=== PATIENT | male | born 1960 | race Caucasian/White ===

== ENCOUNTER 2017-08-22 04:57 | Emergency (ER) | payer MEDICARE, MEDICAID ==
[~2017-08-22] VITALS: Ht 5954.8 cm; Wt 117.2 kg
[~2017-08-22 04:57] MED LIST: ALBU18HF2 IH; AMIT-189 PO; CLON-527 PO; PALI156D IM; PRED20TA PO
[2017-08-22 05:20] VITALS: BP 123/83
== END 2017-08-22 05:23 | disposition home or self-care (01) ==
LOC: ER 04:58
DX: R51 Headache (principal); J44.9 Chronic obstructive pulmonary disease, unspecified; F12.10 Cannabis abuse, uncomplicated; F15.10 Other stimulant abuse, uncomplicated; Z87.891 Personal history of nicotine dependence; Z79.899 Other long term (current) drug therapy; Z88.0 Allergy status to penicillin
CPT/HCPCS: 99281

== ENCOUNTER 2018-12-08 14:37 | Inpatient (IN) | payer MEDICARE, MEDICAID ==
--- NOTE | 2018-12-07 21:40 | NUR ---
Received report from Recovery nurse Cassidy ANGEL. Will assume patient care.
--- NOTE | 2018-12-07 22:00 | NUR ---
Patient arrived to floor stating pain 10/10. Dilaudid cadd pump started, an intial bolus 0.2mg given to patient. Patient noted to have a RUBI drainage to RLQ with SS drainage. Patient has 2 abd lap site and a small gauze dressing to umbilicus.Umbilicus dressing is does have some bloody drainage noted to it. Dressing just changed by Recovery nurse prior to arriving on floor. VSS will continue with care.
[~2018-12-08] VITALS: Ht 180.3 cm; Wt 125.0 kg
[2018-12-08] VITALS (9 sets, daily range): BP systolic 110–144; BP diastolic 62–89
[2018-12-08 15:28] LABS: BASOPHILS # (AUTO) 0.1 X10'3 (0-0.2); BASOPHILS % (AUTO) 0.4 % (0-1); EOSINOPHILS # (AUTO) 0.2 X10'3 (0-0.9); EOSINOPHILS % (AUTO) 1.5 % (0-6); HEMATOCRIT 40.5 % (42.0-52.0); LYMPHOCYTES # (AUTO) 2.1 X10'3 (1.1-4.8); LYMPHOCYTES % (AUTO) 14.7 % (21-51); MEAN CORPUSCULAR HEMOGLOBIN 30.3 PG (27.0-31.0); MEAN CORPUSCULAR HGB CONC 34.5 g/dL (33.0-36.5); MEAN CORPUSCULAR VOLUME 87.9 FL (78-98); MEAN PLATELET VOLUME 7.4 FL (7.4-10.4); MONOCYTES # (AUTO) 0.8 X10'3 (0-0.9); MONOCYTES % (AUTO) 5.6 % (2-12); NEUTROPHILS # (AUTO) 10.9 X10'3 (1.8-7.7); NEUTROPHILS % (AUTO) 77.8 % (42-75); PLATELET COUNT 286 X10'3 (140-440); RED BLOOD COUNT 4.61 X10'6 (4.70-6.10); RED CELL DISTRIBUTION WIDTH 14.2 % (11.5-14.5)
[2018-12-08 15:42] LABS: ALANINE AMINOTRANSFERASE 39 U/L (12-78); ALBUMIN 3.9 G/DL (3.4-5.0); ALBUMIN/GLOBULIN RATIO 1.1 (1.1-1.5); ALKALINE PHOSPHATASE 90 IU/L (46-116); ANION GAP 13 (8-16); ASPARTATE AMINO TRANSFERASE 17 U/L (10-37); BILIRUBIN,TOTAL 0.4 MG/DL (0.1-1.0); BLOOD UREA NITROGEN 23 MG/DL (7-18); CHLORIDE 101 MMOL/L (99-107); CREATININE 1.44 MG/DL (0.60-1.10); GLUCOSE 132 MG/DL (70-104); SODIUM 139 MMOL/L (135-145); TOTAL CARBON DIOXIDE 25.3 MMOL/L (24-32); TOTAL PROTEIN 7.3 G/DL (6.4-8.2); eGFR 50 ML/MIN
[2018-12-08 15:47] LABS: POTASSIUM 2.9 MMOL/L (3.5-5.1)
[2018-12-08] MEDS ORDERED: ketorolac tromethamine 15mg/ml inj. IV ONE (16:15)
[2018-12-08 16:53] LABS: LIPASE 120 U/L (73-393)
[2018-12-08] MEDS ORDERED: lurasidone 60mg tablet PO SCH (17:00)
[2018-12-08] MEDS ORDERED: CefTRIAXone/D5W-Rocephin 1gm 50 ML IV ONE (17:35)
[2018-12-08] MEDS ORDERED: ringers solution, lacted 1,000 ML IV ONE (17:40)
[2018-12-08] MEDS ORDERED: potassium Cl 10 mEq/100mL bag IV ONE (17:40)
[2018-12-08] MEDS ORDERED: magnesium 2GM in 50ml NS 50 ML IV ONE (17:40)
[2018-12-08] MEDS ORDERED: potassium 10mEq/100ml NS w/LIDOcaine (10mg/bag) IV ONE (17:45)
--- NOTE | 2018-12-08 17:49 | NUR ---
PT MOVED FROM RHODES 10 TO BED 15
[2018-12-08] MEDS ORDERED: TERA5CAP4 PO (17:55)
[2018-12-08] MEDS ORDERED: morphine 10mg/ml inj. IV ONE (17:55)
[2018-12-08] MEDS ORDERED: BUPR300T86 PO (17:55)
[2018-12-08] MEDS ORDERED: LOSA50TA64 PO (17:55)
[2018-12-08] MEDS ORDERED: ondansetron/PF 4mg/2ml inj IV ONE (17:55)
[2018-12-08] MEDS ORDERED: CHLO25TA10 PO (17:55)
[2018-12-08] MEDS ORDERED: FLUT1AER PO (17:55)
[2018-12-08] MEDS ORDERED: DOCU-267 PO (17:55)
[2018-12-08] MEDS ORDERED: ATOR20TA66 PO (17:55)
[2018-12-08] MEDS ORDERED: LURA120T PO (17:55)
[2018-12-08] MEDS ORDERED: LEVO100T9 PO (17:55)
[2018-12-08] MEDS ORDERED: NALT50TA PO (17:55)
[2018-12-08] MEDS ORDERED: AMIT75TA48 PO (17:55)
[2018-12-08] MEDS ORDERED: magnesium Cl slow-release 64mg tablet PO PRN (18:00)
[2018-12-08] MEDS ORDERED: potassium Cl 40MEQ/NS 500ml 500 ML IV PRN ×2 (18:00)
[2018-12-08] MEDS ORDERED: acetaminophen 325mg tablet PO PRN ×2 (18:00)
[2018-12-08] MEDS ORDERED: ondansetron/PF 4mg/2ml inj IV PRN ×2 (18:00→19:10)
[2018-12-08] MEDS ORDERED: mag hydrox/Alum hydrox/simeth 30ml oral suspension PO PRN (18:00)
[2018-12-08] MEDS ORDERED: HYDROmorphone inj. 0.5 MG/0.5 ML DISP.SYRIN IV PRN (18:00)
[2018-12-08] MEDS ORDERED: potassium Cl 20 mEq SR tablet PO PRN (18:00)
[2018-12-08] MEDS ORDERED: magnesium 2GM in 50ml NS 50 ML IV PRN (18:00)
[2018-12-08] MEDS ORDERED: HYDROcodone/acetaminophen 5mg/325mg tablet PO PRN (18:00)
[2018-12-08] MEDS ORDERED: magnesium 4gm in 100ml NS 100 ML IV PRN (18:00)
[2018-12-08] MEDS ORDERED: HYDROcodone/acetaminophen 10/325mg tab PO PRN (18:00)
[2018-12-08] MEDS: K and/or MAG REPLACEMENT MC SCH (18:00)
[2018-12-08] MEDS ORDERED: magnesium hydroxide 30ml (MOM) UD suspension PO PRN (18:00)
[2018-12-08] MEDS ORDERED: HYDROmorphone 1 mg/ml syringe IV PRN (18:00)
[2018-12-08] MEDS ORDERED: LIDOcaine 1% 30ml preserv. free vial ONE (18:25)
[2018-12-08] MEDS ORDERED: BUPIVAcaine/PF 2.5 mg/ml (0.25%) 30ml vial ONE (18:26)
[2018-12-08] MEDS ORDERED: ringers solution, lacted 1,000 ML IV SCH (19:06)
[2018-12-08] MEDS ORDERED: morphine 4 MG/ML inj SYRINge IV PRN ×2 (19:10)
[2018-12-08] MEDS ORDERED: meperidine/PF 25mg/ml syringe IV PRN ×3 (19:10)
[2018-12-08] MEDS ORDERED: proCHLORperazine 10 MG/2 ml inj IV PRN (19:10)
[2018-12-08] MEDS ORDERED: sevoflurane 250ml liquid IH ONE (19:13)
[2018-12-08] MEDS ORDERED: midazolam 2 mg/2 ml injection ONE (19:16)
[2018-12-08] MEDS ORDERED: propofol inj 20 ML IV ONE (19:16)
[2018-12-08] MEDS ORDERED: fentaNYL /PF 50mcg/ml 5ml ampule ONE (19:16)
[2018-12-08] MEDS ORDERED: rocuronium 10mg/ml inj IV ONE (19:16)
[2018-12-08] MEDS ORDERED: ceFAZolin 1000mg inj ONE ×3 (19:36)
[2018-12-08] MEDS ORDERED: neostigmine methylsulfate 1 MG/ML 10ml vial ONE (20:28)
[2018-12-08] MEDS ORDERED: glycopyrrolate 0.2mg/ml inj ONE (20:28)
[2018-12-08] MEDS ORDERED: CADD PCA waste documentation MC PRN (20:50)
[2018-12-08] MEDS ORDERED: naloxone 0.4 mg/ml inj IV PRN (20:50)
--- NOTE | 2018-12-08 20:50 | NUR ---
Received from OR via MEDICAL BED, accompanied by Anesthesiologist DR. WALLS and report given by Anesthesiolgist. PT AWAKE AND ALERT, O2 VIA MASK AT [address] DRESSING TO UMB AREA SOAKED, REPLACED WITH GAUZE AND TAPE, CAITLIN DUNNE. SOFÍA WITH GOOD CSM. PULSE AND SERVICE AGENT WNL T/O. RUBI DRAIN NOTED TO RT ABD AREA
[2018-12-08] MEDS: HYDROmorphone/NS 1 mg/ml CADD 50 ML IV SCH ×3 (21:00→23:00)
[2018-12-08] MEDS ORDERED: temazepam 15mg capsule PO PRN (21:00)
--- NOTE | 2018-12-08 21:30 | NUR ---
Report called to receiving nurse FELA ANGEL. Transferred via MEDICAL BED TO ROOM 354C Belongings LEFT AT BEDSIDE. Special Issues communicated to receiving nurse. VSS ON TRASFER. DRESSING CDI ON TRANSFER
[2018-12-08] MEDS: buPROPion SR 150mg tablet PO SCH (21:56)
[2018-12-08] MEDS: BUDESONIDE 0.25 MG/2 ML AMPUL.NEB IH SCH (23:24)
[2018-12-08] MEDS: albuterol 2.5 MG/3 ML nebule NEB SCH (23:24)
[2018-12-08] MEDS: normal saline 1000ml 1,000 ML IV SCH (23:29)
[2018-12-08] MEDS: cefotetan 1gm/50ml IVPB 50 ML IV SCH (23:32)
[2018-12-08] MEDS: terazosin 5mg capsule PO SCH (23:42)
[2018-12-08] MEDS: amitryptiline 50mg tablet PO SCH (23:43)
[2018-12-09] VITALS (7 sets, daily range): BP systolic 105–140; BP diastolic 53–83
[2018-12-09] MEDS ORDERED: ceFOXitin 1 GM ADDVANTAGE BAG 1,000 GM in normal saline 100ml IV soln 100 ML IV SCH ×2
[2018-12-09] MEDS: HYDROmorphone/NS 1 mg/ml CADD 50 ML IV SCH ×5 (01:00→09:00)
[2018-12-09] MEDS: normal saline 1000ml 1,000 ML IV SCH ×3 (03:57→16:17)
--- NOTE | 2018-12-09 04:44 | NUR ---
Patient didier has been having urinary retention. after voiding 500ml patient continue to c/o bladder discomfort. Bladder scan @[address] Kiser order to straight cath now, and if patient had another retention episode to place martínez cath. Straight cath @0200 return 1000ml 0400 Patient got up to ambulated and attempted to urinate. Unable too. C/o bladder discomfort again. Bladder scan showed 800ml, F/C placed under sterile technique. Patient tolerated well. return in drainage bag 800ml.
[2018-12-09 05:15] LABS: BASOPHILS % (AUTO) 0.1 % (0-1); EOSINOPHILS % (AUTO) 0.1 % (0-6); HEMATOCRIT 39.6 % (42.0-52.0); HEMOGLOBIN 13.6 g/dl (14.0-17.9); LYMPHOCYTES # (AUTO) 0.9 X10'3 (1.1-4.8); MEAN CORPUSCULAR HEMOGLOBIN 30.4 PG (27.0-31.0); MEAN CORPUSCULAR HGB CONC 34.3 g/dL (33.0-36.5); MEAN CORPUSCULAR VOLUME 88.8 FL (78-98); MEAN PLATELET VOLUME 7.7 FL (7.4-10.4); MONOCYTES # (AUTO) 0.9 X10'3 (0-0.9); MONOCYTES % (AUTO) 6.2 % (2-12); NEUTROPHILS # (AUTO) 12.6 X10'3 (1.8-7.7); NEUTROPHILS % (AUTO) 87.6 % (42-75); PLATELET COUNT 264 X10'3 (140-440); RED BLOOD COUNT 4.46 X10'6 (4.70-6.10); RED CELL DISTRIBUTION WIDTH 14.4 % (11.5-14.5); WHITE BLOOD COUNT 14.3 X10'3 (4.5-11.0)
[2018-12-09 05:34] LABS: ALBUMIN 3.4 G/DL (3.4-5.0); ANION GAP 10 (8-16); BLOOD UREA NITROGEN 14 MG/DL (7-18); BUN/CREATININE RATIO 10.8 (5.4-32.0); CALCIUM 8.9 MG/DL (8.5-10.1); CHLORIDE 104 MMOL/L (99-107); GLUCOSE 107 MG/DL (70-104); MAGNESIUM 1.6 MG/DL (1.5-2.4); PHOSPHORUS 2.9 MG/DL (2.3-4.5); POTASSIUM 3.3 MMOL/L (3.5-5.1); SODIUM 142 MMOL/L (135-145); TOTAL CARBON DIOXIDE 27.7 MMOL/L (24-32); eGFR 57 ML/MIN
[2018-12-09] MEDS ORDERED: potassium Cl oral solution 20 MEQ/15 ML PO PRN (06:00)
--- NOTE | 2018-12-09 06:00 | NUR ---
Patient in room [facility]I 354. I have received report from Albina ANGEL and had the opportunity to ask questions and assume patient care.
[2018-12-09] MEDS: BUDESONIDE 0.25 MG/2 ML AMPUL.NEB IH SCH ×2 (07:21→19:48)
[2018-12-09] MEDS: albuterol 2.5 MG/3 ML nebule NEB SCH ×3 (07:22→17:00)
[2018-12-09] MEDS: K and/or MAG REPLACEMENT MC SCH (08:00)
[2018-12-09] MEDS ORDERED: naltrexone 50mg tablet PO SCH ×2 (08:00→20:00)
[2018-12-09] MEDS: buPROPion SR 150mg tablet PO SCH ×2 (08:03→20:00)
[2018-12-09] MEDS: atorvastatin 20mg tablet PO SCH (08:03)
[2018-12-09] MEDS: chlorthalidone 25mg tablet PO SCH (08:03)
[2018-12-09] MEDS: cefotetan 1gm/50ml IVPB 50 ML IV SCH (08:03)
[2018-12-09] MEDS: docusate sod 100mg capsule PO SCH (08:03)
[2018-12-09] MEDS: levoTHYROXINE 100mcg tablet PO SCH (08:03)
[2018-12-09] MEDS: terazosin 5mg capsule PO SCH ×2 (08:04→20:00)
[2018-12-09] MEDS: losartan 50mg tablet PO SCH (08:04)
[2018-12-09] MEDS ORDERED: pneumococcal 23-VAL P-sac vacc 25 mcg/0.5ml vial IMVAC ONE (09:00)
--- NOTE | 2018-12-09 10:00 | NUR ---
Dr. Anne informed of temp of 100.3 this AM and HR 109. ordered for pt to have IS.
[2018-12-09] MEDS ORDERED: HYDROcodone/acetaminophen 5mg/325mg tablet PO PRN (10:40)
[2018-12-09] MEDS: HYDROmorphone inj. 0.5 MG/0.5 ML DISP.SYRIN IV PRN (11:23)
[2018-12-09] MEDS: HYDROcodone/acetaminophen 10/325mg tab PO PRN ×2 (16:16→22:29)
--- NOTE | 2018-12-09 18:25 | NUR ---
Patient in room [facility]I 354. I have received report from Ora ANGEL and had the opportunity to ask questions and assume patient care. Pt resting to the left side. no signs of distress. call light and frq used belongings within reach. will continue to monitor.
--- NOTE | 2018-12-09 18:28 | NUR ---
Problems reprioritized. Patient report given, questions answered & plan of care reviewed with Evi ANGEL.
[2018-12-09] MEDS: WATER IV SCH (20:11)
[2018-12-09] MEDS: CEFOTETAN IV SCH (20:11)
[2018-12-09] MEDS: DEXTROSE 5% IV SCH (20:11)
[2018-12-09] MEDS: naltrexone 50mg tablet PO SCH ×2 (20:16→20:28)
[2018-12-09] MEDS: amitryptiline 50mg tablet PO SCH (20:17)
[2018-12-09] MEDS: lurasidone 60mg tablet PO SCH (20:17)
[2018-12-09] MEDS: tamsulosin 0.4mg capsule PO SCH (20:24)
[2018-12-10] VITALS: BP 114/60
[2018-12-10] MEDS ORDERED: cefotetan inj 1 GM in normal saline 50ml IV soln 50 ML IV SCH ×2
[2018-12-10] MEDS: HYDROmorphone inj. 0.5 MG/0.5 ML DISP.SYRIN IV PRN (00:55)
[2018-12-10] MEDS: HYDROcodone/acetaminophen 10/325mg tab PO PRN ×5 (04:41→20:26)
[2018-12-10 06:17] LABS: ALANINE AMINOTRANSFERASE 49 U/L (12-78); ALBUMIN 2.6 G/DL (3.4-5.0); ALBUMIN/GLOBULIN RATIO 0.8 (1.1-1.5); ALKALINE PHOSPHATASE 55 IU/L (46-116); ANION GAP 7 (8-16); ASPARTATE AMINO TRANSFERASE 25 U/L (10-37); BILIRUBIN,TOTAL 0.8 MG/DL (0.1-1.0); BLOOD UREA NITROGEN 8 MG/DL (7-18); BUN/CREATININE RATIO 7.2 (5.4-32.0); CALCIUM 7.7 MG/DL (8.5-10.1); CHLORIDE 104 MMOL/L (99-107); CREATININE 1.11 MG/DL (0.60-1.10); GLUCOSE 98 MG/DL (70-104); MAGNESIUM 1.6 MG/DL (1.5-2.4); PHOSPHORUS 1.9 MG/DL (2.3-4.5); SODIUM 140 MMOL/L (135-145); TOTAL CARBON DIOXIDE 28.7 MMOL/L (24-32); TOTAL PROTEIN 5.9 G/DL (6.4-8.2); eGFR 68 ML/MIN
[2018-12-10 06:19] LABS: POTASSIUM 2.9 MMOL/L (3.5-5.1)
[2018-12-10 06:22] LABS: BASOPHILS % (AUTO) 0.2 % (0-1); EOSINOPHILS # (AUTO) 0.1 X10'3 (0-0.9); EOSINOPHILS % (AUTO) 0.9 % (0-6); HEMATOCRIT 34.8 % (42.0-52.0); HEMOGLOBIN 12.1 g/dl (14.0-17.9); LYMPHOCYTES # (AUTO) 1.3 X10'3 (1.1-4.8); LYMPHOCYTES % (AUTO) 11.5 % (21-51); MEAN CORPUSCULAR HGB CONC 34.8 g/dL (33.0-36.5); MEAN PLATELET VOLUME 7.7 FL (7.4-10.4); MONOCYTES # (AUTO) 1.3 X10'3 (0-0.9); MONOCYTES % (AUTO) 10.8 % (2-12); NEUTROPHILS # (AUTO) 8.9 X10'3 (1.8-7.7); NEUTROPHILS % (AUTO) 76.6 % (42-75); PLATELET COUNT 231 X10'3 (140-440); RED CELL DISTRIBUTION WIDTH 14.6 % (11.5-14.5); WHITE BLOOD COUNT 11.6 X10'3 (4.5-11.0)
--- NOTE | 2018-12-10 06:45 | NUR ---
Patient in room [facility] 354. I have received report from Evi ANGEL and had the opportunity to ask questions and assume patient care.
--- NOTE | 2018-12-10 06:50 | NUR ---
Problems reprioritized. Patient report given, questions answered & plan of care reviewed with Ora ANGEL. pt awake in bed. no signs of distress. call light and frq used belongings within reach. IV intact and IVF infusing per MDs orders.
[2018-12-10 07:12] VITALS: BP 121/76
[2018-12-10] MEDS: BUDESONIDE 0.25 MG/2 ML AMPUL.NEB IH SCH ×2 (07:36→20:00)
[2018-12-10] MEDS: levoTHYROXINE 100mcg tablet PO SCH (07:37)
[2018-12-10] MEDS: WATER IV SCH ×2 (07:37→20:23)
[2018-12-10] MEDS: CEFOTETAN IV SCH ×2 (07:37→20:23)
[2018-12-10] MEDS: DEXTROSE 5% IV SCH ×2 (07:37→20:23)
[2018-12-10] MEDS: docusate sod 100mg capsule PO SCH (07:37)
[2018-12-10] MEDS: buPROPion SR 150mg tablet PO SCH ×2 (07:37→20:00)
[2018-12-10] MEDS: chlorthalidone 25mg tablet PO SCH (07:37)
[2018-12-10] MEDS: terazosin 5mg capsule PO SCH ×2 (07:37→20:00)
[2018-12-10] MEDS: losartan 50mg tablet PO SCH (07:37)
[2018-12-10] MEDS: atorvastatin 20mg tablet PO SCH (07:37)
[2018-12-10] MEDS: albuterol 2.5 MG/3 ML nebule NEB SCH ×4 (07:38→21:00)
[2018-12-10] MEDS: potassium Cl 20 mEq SR tablet PO PRN ×3 (07:40→16:27)
[2018-12-10] MEDS: K and/or MAG REPLACEMENT MC SCH (07:41)
[2018-12-10] MEDS: normal saline 1000ml 1,000 ML IV SCH (09:57)
[2018-12-10 11:29] VITALS: BP 125/72
[2018-12-10] MEDS ORDERED: magnesium hydroxide 30ml (MOM) UD suspension PO ONE (11:49)
--- NOTE | 2018-12-10 12:34 | NUR ---
Informed Dr. Pastor of RUBI drainage being minimal and pt is passing gas. MD ordered to D/C RUBI drain and ordered milk of magnesia 30ml BID.
[2018-12-10] MEDS: Neutra Phos packet PO SCH ×2 (12:40→20:25)
[2018-12-10 18:00] VITALS: BP 133/69
--- NOTE | 2018-12-10 18:30 | NUR ---
Patient in room [facility]I 354. I have received report from Ora ANGEL and had the opportunity to ask questions and assume patient care.
--- NOTE | 2018-12-10 18:34 | NUR ---
Problems reprioritized. Patient report given, questions answered & plan of care reviewed with Evi ANGEL.
[2018-12-10] MEDS: magnesium hydroxide 30ml (MOM) UD suspension PO SCH (20:00)
[2018-12-10] MEDS: lactobacillus rhamnosus 10,000 MMU CELLS/CAPSULE PO SCH (20:23)
[2018-12-10] MEDS: amitryptiline 50mg tablet PO SCH (20:25)
[2018-12-10] MEDS: lurasidone 60mg tablet PO SCH (20:25)
[2018-12-10] MEDS: naltrexone 50mg tablet PO SCH (20:25)
[2018-12-10] MEDS: tamsulosin 0.4mg capsule PO SCH (20:25)
[2018-12-11] VITALS: BP 119/74
[2018-12-11] MEDS: HYDROcodone/acetaminophen 10/325mg tab PO PRN ×4 (00:24→12:30)
[2018-12-11 00:50] LABS: ALBUMIN 2.9 G/DL (3.4-5.0); ANION GAP 8 (8-16); BLOOD UREA NITROGEN 14 MG/DL (7-18); BUN/CREATININE RATIO 10.9 (5.4-32.0); CALCIUM 9.1 MG/DL (8.5-10.1); CHLORIDE 103 MMOL/L (99-107); CREATININE 1.29 MG/DL (0.60-1.10); GLUCOSE 115 MG/DL (70-104); PHOSPHORUS 2.7 MG/DL (2.3-4.5); POTASSIUM 4.3 MMOL/L (3.5-5.1); SODIUM 140 MMOL/L (135-145); eGFR 57 ML/MIN
[2018-12-11 00:57] LABS: BASOPHILS % (AUTO) 0.3 % (0-1); EOSINOPHILS # (AUTO) 0.3 X10'3 (0-0.9); EOSINOPHILS % (AUTO) 2.2 % (0-6); HEMATOCRIT 37.5 % (42.0-52.0); HEMOGLOBIN 12.7 g/dl (14.0-17.9); LYMPHOCYTES # (AUTO) 1.3 X10'3 (1.1-4.8); LYMPHOCYTES % (AUTO) 9.9 % (21-51); MEAN CORPUSCULAR HEMOGLOBIN 30.5 PG (27.0-31.0); MEAN CORPUSCULAR VOLUME 89.7 FL (78-98); MEAN PLATELET VOLUME 7.4 FL (7.4-10.4); MONOCYTES # (AUTO) 1.3 X10'3 (0-0.9); MONOCYTES % (AUTO) 10.1 % (2-12); NEUTROPHILS # (AUTO) 10.4 X10'3 (1.8-7.7); NEUTROPHILS % (AUTO) 77.5 % (42-75); PLATELET COUNT 254 X10'3 (140-440); RED BLOOD COUNT 4.19 X10'6 (4.70-6.10); RED CELL DISTRIBUTION WIDTH 14.5 % (11.5-14.5); WHITE BLOOD COUNT 13.4 X10'3 (4.5-11.0)
--- NOTE | 2018-12-11 04:45 | NUR ---
D/C FC. PT TOLERATED WELL. EDUCATED PT ABOUT PRV , VOIDING, BLADDER SCANS. WILL CONTINUE TO MONITOR
--- NOTE | 2018-12-11 06:30 | NUR ---
Problems reprioritized. Patient report given, questions answered & plan of care reviewed with Anabella ANGEL. no signs of distress. call light and frq used belongings within reach. IV intact. pt A/Ox4.
--- NOTE | 2018-12-11 06:42 | NUR ---
Patient in room [facility] 354. I have received report from Evi ANGEL and had the opportunity to ask questions and assume patient care.
[2018-12-11 07:00] VITALS: BP 130/75
[2018-12-11] MEDS: magnesium hydroxide 30ml (MOM) UD suspension PO SCH (08:00)
[2018-12-11] MEDS: BUDESONIDE 0.25 MG/2 ML AMPUL.NEB IH SCH (08:00)
[2018-12-11] MEDS: docusate sod 100mg capsule PO SCH (08:00)
[2018-12-11] MEDS: DEXTROSE 5% IV SCH (08:42)
[2018-12-11] MEDS: buPROPion SR 150mg tablet PO SCH (08:42)
[2018-12-11] MEDS: CEFOTETAN IV SCH (08:42)
[2018-12-11] MEDS: WATER IV SCH (08:42)
[2018-12-11] MEDS: losartan 50mg tablet PO SCH (08:43)
[2018-12-11] MEDS: chlorthalidone 25mg tablet PO SCH (08:43)
[2018-12-11] MEDS: terazosin 5mg capsule PO SCH (08:43)
[2018-12-11] MEDS: lactobacillus rhamnosus 10,000 MMU CELLS/CAPSULE PO SCH (08:44)
[2018-12-11] MEDS: atorvastatin 20mg tablet PO SCH (08:44)
[2018-12-11] MEDS: levoTHYROXINE 100mcg tablet PO SCH (08:44)
[2018-12-11] MEDS: Neutra Phos packet PO SCH (08:48)
--- NOTE | 2018-12-11 09:59 | NUR ---
Paged Dr. Anne to let him know patient's current peripheral IV catheter is leaking/infiltrated and that patient requesting PO antibiotic instead.
[2018-12-11] MEDS: albuterol 2.5 MG/3 ML nebule NEB SCH (12:00)
[2018-12-11] MEDS ORDERED: HYDR-3972 PO (13:32)
--- NOTE | 2018-12-11 14:47 | NUR ---
Discharge instructions given to patient, patient verbalized understanding of all instructions made. Written prescription for [place] given to patient. Peripheral IV catheter removed, tip intact. Advised patient to ensure he has all his belongings with him. Patient awaiting for a ride from a friend
--- NOTE | 2018-12-11 15:00 | NUR ---
Patient left his room accompanied by a friend, transported by a staff via wheelchair
== END 2018-12-11 15:00 | disposition home or self-care (01) | DRG 854 ==
LOC: ER 14:38 → SUR 3N 17:59
PROVIDERS: ADMIT Family Medicine; ATTEND Internal Medicine
PROC: 0WQF0ZZ Repair Abdominal Wall, Open Approach (ICD-10-PCS; 2018-12-08)
PROC: 0FT44ZZ Resection of Gallbladder, Percutaneous Endoscopic Approach (ICD-10-PCS; principal; 2018-12-08 19:13)
PROC: 3E0234Z Introduction of Serum, Toxoid and Vaccine into Muscle, Percutaneous Approach (ICD-10-PCS; 2018-12-09)
DX: A41.9 Sepsis, unspecified organism (principal); K80.00 Calculus of gallbladder with acute cholecystitis without obstruction; K42.0 Umbilical hernia with obstruction, without gangrene; N17.9 Acute kidney failure, unspecified; K56.7 Ileus, unspecified; E03.9 Hypothyroidism, unspecified; E86.0 Dehydration; B19.20 Unspecified viral hepatitis C without hepatic coma; E87.6 Hypokalemia; N18.3 Chronic kidney disease, stage 3 (moderate); F20.9 Schizophrenia, unspecified; F15.90 Other stimulant use, unspecified, uncomplicated; I12.9 Hypertensive chronic kidney disease with stage 1 through stage 4 chronic kidney disease, or unspecified chronic kidney disease; F12.90 Cannabis use, unspecified, uncomplicated; Z60.2 Problems related to living alone; G47.30 Sleep apnea, unspecified; J44.9 Chronic obstructive pulmonary disease, unspecified; N40.0 Benign prostatic hyperplasia without lower urinary tract symptoms; G47.00 Insomnia, unspecified; E66.01 Morbid (severe) obesity due to excess calories; F41.0 Panic disorder [episodic paroxysmal anxiety]; Z88.0 Allergy status to penicillin; Z79.899 Other long term (current) drug therapy; Z87.891 Personal history of nicotine dependence; Z87.442 Personal history of urinary calculi; Z87.11 Personal history of peptic ulcer disease; Z23 Encounter for immunization; Z68.38 Body mass index [BMI] 38.0-38.9, adult
CPT/HCPCS: 36415; 76700; 80048; 80053; 83690; 83735; 84100; 85025; 85610; 87070; 88304; 90732; 93005; 94640; 94760; A7000; G0378; J0690; J0696; J1170; J1885; J2250; J2270; J2405; J2704; J2710; J3010; J3475; J3480; J3490; J7030; J7040; J7060; J7120

== ENCOUNTER 2019-05-28 09:41 | Emergency (ER) | payer MEDICARE, MEDICAID ==
[~2019-05-28] VITALS: Ht 180.3 cm; Wt 90.9 kg
[~2019-05-28 09:41] MED LIST changes: -ALBU18HF2 IH; -AMIT-189 PO; +CEFD300C3 PO; -CLON-527 PO; +FOLI0.4T2 PO; +MULT1TAB74 PO; -PALI156D IM; -PRED20TA PO; +THIA100T66 PO
--- NOTE | 2019-05-28 11:16 | NUR ---
PATIENT BIB EMS WITH C/O AUDITORY HALLUCINATIONS. STATES HE WAS HEARING VOICES THAT WERE TELLING HIM TO "RUN TO [place]" AND THEN "RUN TO [place] TOMORROW". PATIENT FOUND ON THE STREET IN [place], HEADING TOWARD [place]. HX SCHIZOPHRENIA, BUT HAS NOT TAKEN HIS MEDICATIONS FOR THE PAST FEW DAYS. PATIENT STATES HE LIVES IN [place].
[2019-05-28 11:33] LABS: BASOPHILS # (AUTO) 0.2 X10'3 (0-0.2); EOSINOPHILS # (AUTO) 0.1 X10'3 (0-0.9); EOSINOPHILS % (AUTO) 0.7 % (0-6); HEMATOCRIT 44.2 % (42.0-52.0); HEMOGLOBIN 15.3 g/dl (14.0-17.9); LYMPHOCYTES # (AUTO) 1.2 X10'3 (1.1-4.8); LYMPHOCYTES % (AUTO) 13.6 % (21-51); MEAN CORPUSCULAR HEMOGLOBIN 31.9 PG (27.0-31.0); MEAN CORPUSCULAR HGB CONC 34.6 g/dL (33.0-36.5); MEAN CORPUSCULAR VOLUME 92.2 FL (78-98); MEAN PLATELET VOLUME 8.1 FL (7.4-10.4); MONOCYTES # (AUTO) 0.7 X10'3 (0-0.9); MONOCYTES % (AUTO) 7.9 % (2-12); NEUTROPHILS # (AUTO) 6.5 X10'3 (1.8-7.7); NEUTROPHILS % (AUTO) 75.2 % (42-75); PLATELET COUNT 301 X10'3 (140-440); RED BLOOD COUNT 4.79 X10'6 (4.70-6.10); RED CELL DISTRIBUTION WIDTH 14.7 % (11.5-14.5); WHITE BLOOD COUNT 8.6 X10'3 (4.5-11.0)
[2019-05-28 11:36] LABS: BASOPHILS % (AUTO) 0.3 % (0-1)
[2019-05-28 11:52] LABS: ALANINE AMINOTRANSFERASE 51 U/L (12-78); ALBUMIN 3.4 G/DL (3.4-5.0); ALKALINE PHOSPHATASE 79 IU/L (46-116); ANION GAP 8 (8-16); ASPARTATE AMINO TRANSFERASE 46 U/L (10-37); BILIRUBIN,TOTAL 0.5 MG/DL (0.1-1.0); BLOOD UREA NITROGEN 14 MG/DL (7-18); BUN/CREATININE RATIO 15.1 (5.4-32.0); CALCIUM 8.9 MG/DL (8.5-10.1); CHLORIDE 103 MMOL/L (99-107); CREATININE 0.93 MG/DL (0.60-1.10); GLUCOSE 102 MG/DL (70-104); POTASSIUM 3.1 MMOL/L (3.5-5.1); SODIUM 142 MMOL/L (135-145); TOTAL CARBON DIOXIDE 31.5 MMOL/L (24-32); TOTAL PROTEIN 6.7 G/DL (6.4-8.2); eGFR 83 ML/MIN
[2019-05-28 11:55] LABS: ETHANOL < 0.010 GM/DL (0.0-0.010)
--- NOTE | 2019-05-28 12:10 | NUR ---
Patient ambulatory, steady gait from E.D. 16 to room 24. Patient is calm and cooperative. Continue to monitor.
[2019-05-28] MEDS ORDERED: potassium Cl 20 mEq SR tablet PO STA (12:12)
[2019-05-28 12:29] LABS: URINE AMPHETAMINE SCREEN POSITIVE (Neg); URINE BARBITUATE SCREEN NEGATIVE (Neg); URINE BENZODIAZEPINES SCREEN NEGATIVE (Neg); URINE CANNABINOID SCREEN NEGATIVE (Neg); URINE COCAINE SCREEN NEGATIVE (Neg); URINE METHADONE SCREEN NEGATIVE (Neg); URINE OPIATE SCREEN NEGATIVE (Neg); URINE PHENCYCLIDINE SCREEN NEGATIVE (Neg)
[2019-05-28] MEDS ORDERED: OLAN10TA3 PO (12:34)
[2019-05-28] MEDS ORDERED: DIVA500T9 PO (12:34)
[2019-05-28 12:39] LABS: CLARITY,URINE SLIGHTLY CLOUDY (Clear); COLOR,URINE YELLOW (Yellow); GLUCOSE, URINE NEGATIVE (Neg); KETONES,URINE 40 mg/dl (Neg); LEUKOCYTE ESTERASE ,URINE NEGATIVE (Neg); NITRITES, URINE NEGATIVE (Neg); OCCULT BLOOD,URINE NEGATIVE (Neg); PROTEIN,URINE NEGATIVE (Neg)
[2019-05-28 12:41] LABS: UA COLLECTION TYPE VOIDED
[2019-05-28 12:45] LABS: VALPROATE < 3.0 UG/ML (50-100)
[2019-05-28 12:46] LABS: BACTERIA,URINE 1+ /HPF (Neg); MUCUS STRANDS MODERATE /LPF (Neg); RBC,URINE 0-2 /HPF (0-2); SQUAMOUS EPITHELIAL CELL,UR FEW /LPF (FEW); WBC,URINE 0-4 /HPF (0-4)
[2019-05-28] MEDS ORDERED: FOLI0.4T2 PO (12:55)
[2019-05-28] MEDS ORDERED: MULT-1074 PO (12:55)
[2019-05-28] MEDS ORDERED: THIA100T73 PO (12:55)
--- NOTE | 2019-05-28 13:02 | NUR ---
PT PACKET FAXED, TAD OFFICE CONFIRMED RECIEVAL.
--- NOTE | 2019-05-28 13:40 | NUR ---
Patient states he is hearing voices telling him to "go to [facility]". Patient lives in [facility]. Patient has HX of schizophrenia and also was positive for meth. Continue to monitor.
--- NOTE | 2019-05-28 15:14 | NUR ---
Patient sleeping on left side. No distress observed. Continue to monitor.
--- NOTE | 2019-05-28 15:26 | NUR ---
jere primary RN, pt is in bed laying on his left side, eyes closed appears to be alseep, no agitation apparent
--- NOTE | 2019-05-28 16:20 | NUR ---
[place], [facility] evaluating patient. (RN overheard conversation) Patient states he is hearing voices and he walked away from his house 2 days ago without his keys ([place]). He thinks he left it unlocked. Patient is not compliant with his medication and appears to have different providers writing for different antipsychotic medications. Patient denies using meth and does not know how the meth got into him. Continue to monitor
--- NOTE | 2019-05-28 17:42 | NUR ---
Patient sleeping on left side. No distress observed. Continue to monitor.
--- NOTE | 2019-05-28 18:36 | NUR ---
Note mari in EDM - 05/28/19 at 1839 by MIKI Patient is awake and well oriented. She is sitting in bed eating her dinner. Patient tells this junior underwriter that she is suicidal, the plan is "to jump in front of a truck." Patient missed her curfew at the [facility], went out and meth before bringing herself here. Patients speech is rapid, soft, and regular. Patient denies H/I, or hallucinations. She is cooperative with staff at this time. Patients bed in view from nursing station,
--- NOTE | 2019-05-28 18:46 | NUR ---
Patient is awake and eating dinner following shift change. Patient listened to voices and attempted to walk from the [facility] to [place]. Tox is positive for meth. Patient immediately goes to sleep following dinner. Patients bed is in direct view from the nursing station.
[2019-05-28] MEDS ORDERED: olanzapine 10mg tablet PO SCH (21:00)
[2019-05-28] MEDS ORDERED: divalproex sod 250mg ER (24-hour) tablet PO SCH (21:00)
[2019-05-29 05:30] VITALS: BP 131/86
--- NOTE | 2019-05-29 06:49 | NUR ---
Patient sleeping on left side. No distress observed. Continue to monitor.
[2019-05-29] MEDS ORDERED: multivitamins, therapeutics tablet PO SCH (08:00)
[2019-05-29] MEDS ORDERED: thiamine 100mg tablet PO SCH (08:00)
[2019-05-29] MEDS ORDERED: folic acid 0.4mg tablet PO SCH (08:00)
--- NOTE | 2019-05-29 08:25 | NUR ---
Patient sitting up and eating. No distress observed. Continue to monitor.
--- NOTE | 2019-05-29 10:05 | NUR ---
Patient ambulatory to BR, steady gait. No distress observed. Continue to monitor.
--- NOTE | 2019-05-29 11:50 | NUR ---
Patient sleeping on right side. No distress observed. Continue to monitor.
== END 2019-05-29 12:26 ==
LOC: ER 09:42
DX: F29 Unspecified psychosis not due to a substance or known physiological condition (principal); F79 Unspecified intellectual disabilities; J44.9 Chronic obstructive pulmonary disease, unspecified; F41.0 Panic disorder [episodic paroxysmal anxiety]; F20.9 Schizophrenia, unspecified; F12.90 Cannabis use, unspecified, uncomplicated; F15.90 Other stimulant use, unspecified, uncomplicated; Z88.0 Allergy status to penicillin; Z79.2 Long term (current) use of antibiotics; Z79.899 Other long term (current) drug therapy
CPT/HCPCS: 36415; 80053; 80164; 80305; 80320; 81001; 84443; 85025; 99285

== ENCOUNTER 2019-05-29 10:09 | Inpatient (IN) | payer MEDICARE, MEDICAID ==
[~2019-05-29] VITALS: Ht 180.3 cm; Wt 105.4 kg
[~2019-05-29 10:09] MED LIST changes: -CEFD300C3 PO; +DIVA500T9 PO; +MULT-1074 PO; -MULT1TAB74 PO; +OLAN10TA3 PO; -THIA100T66 PO; +THIA100T73 PO
[2019-05-29] MEDS ORDERED: mag hydrox/Alum hydrox/simeth 30ml oral suspension PO PRN (12:55)
[2019-05-29] MEDS ORDERED: loperamide 2mg capsule PO PRN (12:55)
[2019-05-29] MEDS ORDERED: LORazepam 1 MG tablet PO PRN ×2 (12:55→19:55)
[2019-05-29] MEDS ORDERED: magnesium hydroxide 30ml (MOM) UD suspension PO PRN (12:55)
[2019-05-29] MEDS ORDERED: acetaminophen 325mg tablet PO PRN ×2 (12:55)
[2019-05-29] MEDS ORDERED: hydrOXYzine 25 MG tablet PO PRN ×2 (12:55→19:55)
[2019-05-29] MEDS: divalproex sod 250mg ER (24-hour) tablet PO SCH (15:08)
--- NOTE | 2019-05-29 15:15 | NUR ---
Admit note: Pt initially presented to the ED with paranoid delusions, actively experiencing command hallucinations, and had a history of previous similar psychotic episodes. he was also not taking his medications. Pt arrived to [facility] unit at 1230 from [facility] ED accompanied by Richard, [facility] unit tech and security via wheelchair. Pt ambulated on to the unit in [facility] scrubs and non-slip socks. No skin issues to note except callouses on bilateral medial great toes, skin is intact, no open sores. There also appears to be some redness noted to his left flank, however skin is intact here as well. Pt was oriented to unit, received lunch and snack and participated in art therapy. Pt is pleasant and cooperative with care. He took his medications without incident. He reports a PMH positive for HTN, fibromyalgia, chronic fatigue and schizophrenia. Questions were answered and Pt denied further needs at this time. Pt is a former smoker, smoking cessation information was offered and declined. Nicotine replacement declined.
[2019-05-29 19:50] VITALS: BP 118/68
[2019-05-29] MEDS: olanzapine 10mg tablet PO SCH (20:05)
--- NOTE | 2019-05-30 00:21 | NUR ---
Nursing Progress Note: Legal hold: Client on involuntary status for DTS. Report received from STANLEY Berry with use of SBAR. Why are they here: Patient is a 58 year old male with schizophrenia and panic disorder who presented to the ED complaining of increasing auditory and visual hallucination. Patient left his house in [place] to walk to [place] because voices were telling him to "start my everlasting destruction of myself." He was picked up in [place] near [place]. He has not been taking his medications secondary to forgetting. Diagnosis/presenting symptoms: Schizoaffective, Panic disorder, SI Assessment What has happened this shift: Pt was asleep at change of shift and only woke up for 1:1 and snack. Pt denies feeling SI at this time and reports that "the medications are helping the voices go away." Pt was cooperative and friendly during 1:1 and when out of room for snack. S/I, H/I:denies A/VH: "getting better" Sleep:asleep at this time ADL's:independent Group attendance:snack Were meds taken:yes Any med S/E: no Mental Status Exam Appearance: clean, dressed in green scrubs Eye contact:minimal Behavior:friendly Speech:normal Mood:tired Affect:congruent to mood Thought process:linear Thought Content: "feeling better" Cognition: Insight:poor Judgment:poor Interventions PRN's used:none Therapeutic interventions:1:1 assessment, active listening, therapeutic conversation, medication administration/education/monitoring, encouragement to attend groups, Q 15 min safety checks. Restraints/seclusion/emergency medication: None Justification of Continued Inpatient Treatment: Interrupt current crisis, maintain safety of patient. Continued therapeutic support and medication management needed to provide stabilization, prevent decompensation, decreasing risk to patient and readmittance.
[2019-05-30 07:45] LABS: HEMOGLOBIN A1C 5.5 % (4.5-6.2)
[2019-05-30 08:00] VITALS: BP 110/77
[2019-05-30 08:01] LABS: ALANINE AMINOTRANSFERASE 40 U/L (12-78); ALBUMIN 3.1 G/DL (3.4-5.0); ALBUMIN/GLOBULIN RATIO 0.9 (1.1-1.5); ALKALINE PHOSPHATASE 69 IU/L (46-116); ANION GAP 5 (8-16); ASPARTATE AMINO TRANSFERASE 20 U/L (10-37); BILIRUBIN,TOTAL 0.2 MG/DL (0.1-1.0); BLOOD UREA NITROGEN 12 MG/DL (7-18); BUN/CREATININE RATIO 12.1 (5.4-32.0); CALCIUM 8.8 MG/DL (8.5-10.1); CHLORIDE 108 MMOL/L (99-107); CHOL/HDL RATIO 3.8 (0.00-4.99); CHOLESTEROL 148 MG/DL (0-200); CREATININE 0.99 MG/DL (0.60-1.10); GLUCOSE 92 MG/DL (70-104); HDL CHOLESTEROL 39 MG/DL (35-60); LDL CHOLESTEROL 92 MG/DL (50-100); POTASSIUM 4.2 MMOL/L (3.5-5.1); SODIUM 143 MMOL/L (135-145); TOTAL CARBON DIOXIDE 29.7 MMOL/L (24-32); TOTAL PROTEIN 6.7 G/DL (6.4-8.2); TRIGLYCERIDES 117 MG/DL (20-135); eGFR 77 ML/MIN
[2019-05-30] MEDS: folic acid 0.4mg tablet PO SCH (08:47)
[2019-05-30] MEDS: thiamine 100mg tablet PO SCH (08:47)
[2019-05-30] MEDS: divalproex sod 250mg ER (24-hour) tablet PO SCH (08:47)
[2019-05-30] MEDS: multivitamins, therapeutics tablet PO SCH (08:47)
--- NOTE | 2019-05-30 15:29 | NUR ---
Met with Ct to complete psychosocial assessment. Ct was a poor historian. He appeared to be attending to internal stimuli. He reported he has a home in [facility] and [facility] [id number] Addendum: 05/30/19 at 1549 by Kita Rodriguez SS Amended: Links added.
--- NOTE | 2019-05-30 15:41 | NUR ---
Called [facility] to schedule Ct follow up appt. Appt scheduled for 06/15/19 at 8:[address] Kenney. Ada Rodriguez, [facility] Lic# [id number]
--- NOTE | 2019-05-30 16:52 | NUR ---
Nursing Progress Note: Legal hold: Client on involuntary status for DTS. Report received from STANLEY Mckeon with use of SBAR. Why are they here: Patient is a 58 year old male with schizophrenia and panic disorder who presented to the ED complaining of increasing auditory and visual hallucination. Patient left his house in [place] to walk to [place] because voices were telling him to "start my everlasting destruction of myself." He was picked up in [place] near [place]. He has not been taking his medications secondary to forgetting. Assessment What has happened this shift: Pt was asleep at change of shift woke up for 1:1 assessment and administration of medications. Pt in bed most of the shift other than meals and groups. S/I, H/I:denies A/VH: endorses Sleep: on bed most of the shift ADL's:independent Group attendance:snack Were meds taken:yes Any med S/E: no Mental Status Exam Appearance: hospital green scrubs Eye contact:minimal Behavior:friendly Speech:normal Mood:tired Affect:congruent to mood Thought process:linear Thought Content: "feeling better" Cognition: Insight:poor Judgment:poor Interventions PRN's used:none Therapeutic interventions: am 1:1 assessment, medication administration/education/monitoring, prompts and encouragement to attend groups, Q 15 min safety checks. Restraints/seclusion/emergency medication: None Justification of Continued Inpatient Treatment: Interrupt current crisis, maintain safety of patient. Continued therapeutic support and medication management needed to provide stabilization, prevent decompensation, decreasing risk to patient and readmittance.
[2019-05-30 19:24] VITALS: BP 141/88
[2019-05-30] MEDS: olanzapine 10mg tablet PO SCH (20:14)
--- NOTE | 2019-05-31 00:44 | NUR ---
Nursing Progress Note: Chief Complaint: Gravely disabled, psychosis Legal hold: 5150 Client on involuntary status for GD. Report received from STANLEY Ibanez with use of SBAR. Why are they here: Patient is a 58 year old male with schizophrenia and panic disorder who presented to the ED complaining of increasing auditory and visual hallucination. Patient left his house in [place] to walk to [place] because voices were telling him to "start my everlasting destruction of myself." He was picked up in [place] near [place]. He has not been taking his medications secondary to forgetting. Assessment What has happened this shift: Pt was asleep at change of shift woke up for 1:1 assessment and administration of medications. During assessment, when asked questions pt would have a delayed response, sometimes requiring me to repeat the question. Pt in bed most of the shift other than meals and snack. S/I, H/I:denies A/VH: "I don't know" Sleep: asleep at this time ADL's:independent Group attendance:snack Were meds taken:yes Any med S/E: no Mental Status Exam Appearance: hospital green scrubs Eye contact:minimal Behavior:friendly Speech:normal Mood:tired Affect:congruent to mood Thought process:linear Thought Content: feeling tired Cognition: Insight:poor Judgment:poor Interventions PRN's used:none Therapeutic interventions: am 1:1 assessment, medication administration/education/monitoring, prompts and encouragement to attend groups, Q 15 min safety checks. Restraints/seclusion/emergency medication: None Justification of Continued Inpatient Treatment: Interrupt current crisis, maintain safety of patient. Continued therapeutic support and medication management needed to provide stabilization, prevent decompensation, decreasing risk to patient and readmittance.
[2019-05-31] MEDS: thiamine 100mg tablet PO SCH (08:17)
[2019-05-31] MEDS: multivitamins, therapeutics tablet PO SCH (08:17)
[2019-05-31] MEDS: divalproex sod 250mg ER (24-hour) tablet PO SCH (08:18)
[2019-05-31] MEDS: folic acid 0.4mg tablet PO SCH (08:18)
[2019-05-31 08:25] VITALS: BP 137/85
[2019-05-31] MEDS: diphenhydrAMINE 25mg capsule PO PRN ×2 (13:34→21:17)
--- NOTE | 2019-05-31 16:32 | NUR ---
Nursing Progress Note: Chief Complaint: Gravely disabled, psychosis Legal hold: 5150 Client on involuntary status for GD. Report received from STANLEY Mckeon with use of SBAR. Why are they here: Patient is a 58 year old male with schizophrenia and panic disorder who presented to the ED complaining of increasing auditory and visual hallucination. Patient left his house in [place] to walk to [place] because voices were telling him to "start my everlasting destruction of myself." He was picked up in [place] near [place]. He has not been taking his medications secondary to forgetting. Assessment What has happened this shift: Pt was asleep at change of shift. During am assessment in response to the question "who do you live with?" Pt stated, "sometimes there are a bunch of angels, like spirit, small people." He described having A/V/H for "a long time." He stayed in his room most of the day getting up for meals and groups only. Pt c/o itching and pain on his left side. He has a raised, bright red rash covering the whole side of his left torso. Dr. Palafox notified. Picture placed in chart. Benadryl given to stop the itching. S/I, H/I:denies A/VH: "I don't know" Sleep: asleep at this time ADL's:independent Group attendance:snack Were meds taken:yes Any med S/E: no Mental Status Exam Appearance: hospital green scrubs Eye contact:minimal Behavior:friendly Speech:normal Mood:tired Affect:congruent to mood Thought process:linear Thought Content: feeling tired Cognition: A&Ox4 Insight:poor Judgment:poor Interventions PRN's used: Benadryl q6 for itching Therapeutic interventions: 1:1 assessment, medication administration/education/monitoring, prompts and encouragement to attend groups, Q 15 min safety checks. Restraints/seclusion/emergency medication: None Justification of Continued Inpatient Treatment: Interrupt current crisis, maintain safety of patient. Continued therapeutic support and medication management needed to provide stabilization, prevent decompensation, decreasing risk to patient and readmittance.
[2019-05-31 20:45] VITALS: BP 144/79
[2019-05-31] MEDS: olanzapine 10mg tablet PO SCH (20:48)
[2019-05-31] MEDS: calamine LOTION TP SCH (21:41)
--- NOTE | 2019-06-01 02:04 | NUR ---
Nursing Progress Note: Legal hold: 5150 Client on voluntary/involuntary status for GD Report received from nurse with use of SBAR: Avila RN Why are they here: Patient is a 58 year old male with schizophrenia and panic disorder who presented to the ED complaining of increasing auditory and visual hallucinations. Patient left his house in [place] to walk to [place] because voices were telling him to "start my everlasting destruction of myself." He was picked up in [place] near [place] after found laying on the side of the road. Pt. has not been taking his medications secondary to forgetting and has a history of multiple psychiatric hospitalizations. His toxicology screen was positive for amphetamines. Assessment What has happened this shift: Pt. laying in bed asleep at the beginning of the shift, and continues to isolate here throughout most of the shift. He does briefly get out of bed to attend snack after being prompted by this rewriter, however returns immediately back to bed. 1:1 completed at bedside, pt. presents as cooperative, withdrawn, and guarded. He denies S/I or H/I, however reports paranoid delusions and states, "I am sure that someone wants to hurt me, but I can't remember their names." Pt. also reports ongoing A/V/GREEN. When questioned by this rewriter regarding what the A/GREEN say, pt. states, "They were in a dream, I can't remember." He also reports he sees things that other people do not, such as horses and people. Pt. continues to have reddened/warm rash on left side and reports pruritus, relieved with PRN Benadryl. Also obtained order for Calamine Lotion to apply to area, administered at , pt. reports content. S/I, H/I: Denies A/VH: Pt. also reports ongoing A/V/GREEN. He is unable to describe A/GREEN, however reports he sees things that other people do not, such as horses and people. Sleep: Pt. presents as fatigued, and remains in bed throughout the shift. Appears to be resting comfortably ADL's: Requires direction and prompting from staff Group attendance: He does briefly get out of bed to attend snack after being prompted by this rewriter, however returns immediately back to bed. Were meds taken: Yes Any med S/E: None, however presents as fatigued Mental Status Exam Appearance: Somewhat disheveled, however appropriately dressed Eye contact: Fair Behavior: Cooperative, withdrawn, and guarded Speech: Soft, minimal, responds only to questions Mood: Withdrawn, guarded Affect: Constricted Thought process: Poverty of thought Thought Content: A/V/GREEN and paranoid delusions Cognition: A& O X4 Insight: Poor Judgment: Poor Interventions PRN's used: Benadryl Therapeutic interventions: Introduced self and established rapport, ensured contract for safety, provided clear and simple instructions, attempted to reorient to reality, provided medication education, provided direction and prompting to perform ADLs and needed, obtained order for Calamine Lotion for rash, and maintained Q 15 min safety checks. Restraints/seclusion/emergency medication: N/A Justification of Continued Inpatient Treatment: Requires interruption of current crisis, medication adjustments, and a safe and supportive environment.
[2019-06-01] MEDS: multivitamins, therapeutics tablet PO SCH (07:56)
[2019-06-01] MEDS: buPROPion 75mg tablet PO SCH (07:56)
[2019-06-01] MEDS: divalproex sod 250mg ER (24-hour) tablet PO SCH (07:57)
[2019-06-01] MEDS: thiamine 100mg tablet PO SCH (07:57)
[2019-06-01] MEDS: folic acid 0.4mg tablet PO SCH (07:58)
[2019-06-01] MEDS: calamine LOTION TP SCH (08:00)
[2019-06-01 08:05] VITALS: BP 137/81
[2019-06-01] MEDS: triamcinolone acetonide 0.5% cream 15gm TP SCH ×3 (09:00→20:26)
[2019-06-01] MEDS ORDERED: FLU VACC QS2019-20 36MOS UP/PF 60 MCG/0.5 ML SYRINGE IMVAC ONE (10:00)
--- NOTE | 2019-06-01 17:00 | NUR ---
Nursing Progress Note: Legal hold: 5150 Client on voluntary/involuntary status for GD Report received from nurse with use of SBAR: STANLEY Mckeon Why are they here: Patient is a 58 year old male with schizophrenia and panic disorder who presented to the ED complaining of increasing auditory and visual hallucinations. Patient left his house in [place] to walk to [place] because voices were telling him to "start my everlasting destruction of myself." He was picked up in [place] near [place] after found laying on the side of the road. Pt. has not been taking his medications secondary to forgetting and has a history of multiple psychiatric hospitalizations. His toxicology screen was positive for amphetamines. Assessment What has happened this shift: Pt. asleep at start of shift. Pt. ate breakfast in the community room. Pt. took medications. 1:1 done at bedside. Pt. gives minimal response to questions. Pt. denies SI but reports hearing voices that tell him to torture and destroy himself. Pt. is paranoid that someone is coming after her. Pt. attended groups but otherwise isolated to his room. Pt. received flu vaccination. Pt.'s calamine lotion d/c'd and pt. started on triamcinolone cream. S/I, H/I: Denies A/VH: Pt. reports hearing voices that tell him to torture and destroy himself. Sleep: Pt. napped frequently throughout the shift. ADL's: Requires direction and prompting from staff Group attendance: Yes Were meds taken: Yes Any med S/E: None, however presents as fatigued Mental Status Exam Appearance: Somewhat disheveled, however appropriately dressed Eye contact: Fair Behavior: Cooperative, withdrawn, and guarded Speech: Soft, minimal, responds only to questions Mood: Withdrawn, guarded Affect: Blunted Thought process: Poverty of thought Thought Content: protecting himself from the voices. Cognition: A&O X3 (Not to time) Insight: Poor Judgment: Poor Interventions PRN's used: None. Therapeutic interventions: Introduced self and established rapport, ensured contract for safety, provided clear and simple instructions, attempted to reorient to reality, provided medication education, provided direction and prompting to perform ADLs and needed, obtained order for Calamine Lotion for rash, and maintained Q 15 min safety checks. Restraints/seclusion/emergency medication: N/A Justification of Continued Inpatient Treatment: Requires interruption of current crisis, medication adjustments, and a safe and supportive environment.
[2019-06-01 20:14] VITALS: BP 144/83
[2019-06-01] MEDS: diphenhydrAMINE 25mg capsule PO PRN (20:26)
[2019-06-01] MEDS: olanzapine 10mg tablet PO SCH (20:26)
--- NOTE | 2019-06-01 21:40 | NUR ---
Nursing Progress Note: Legal hold: 5150 Client on voluntary/involuntary status for GD Report received from nurse with use of SBAR: STANLEY Weber Why are they here: Patient is a 58 year old male with schizophrenia and panic disorder who presented to the ED complaining of increasing auditory and visual hallucinations. Patient left his house in [place] to walk to [place] because voices were telling him to "start my everlasting destruction of myself." He was picked up in [place] near [place] after found laying on the side of the road. Pt. has not been taking his medications secondary to forgetting and has a history of multiple psychiatric hospitalizations. His toxicology screen was positive for amphetamines. Assessment What has happened this shift: Patient is in his room at change of shift laying in bed awake in the dark. He sits up in bed when entering the room and is agreeable to a 1:1 assessment. He reports Command auditory hallucinations that tell him to do things. He denies that the voices tell him to harm himself or others. He reports they tell him to "Sit, stand" and do random things. He reports when asked about SI "I wouldn't mind if I ." When asked if he wanted to harm himself or had a plan he denied this and reported just a lost will to live. He said before he dies he would like to get rid of his debt. Patient has a rash to his left side of the abdomen, Kenalog cream is applied as order and patient takes 25 mg Benadryl to help with itching this evening. He is cooperative for his evening medications and remains in his room this evening keeping to himself. S/I, H/I: Reports lost will to live, denies plan or intent to harm self. Denies HI A/VH: Pt. reports hearing voices that tell him to do things like sit and stand denies that the voices told him to harm himself at this time. Sleep: Currently sleeping, see sleep assessment ADL's: Requires direction and prompting from staff Group attendance: No groups this shift Were meds taken: Yes Any med S/E: None noted or reported Mental Status Exam Appearance: Somewhat disheveled, appropriately dressed Eye contact: Fair Behavior: Cooperative, withdrawn Speech: Soft, minimal, responds only to questions Mood: Withdrawn, depressed Affect: Blunted Thought process: Linear Thought Content: Lost will to live, voices, and wanting to get out of debt Cognition: A&O X3 Insight: Poor Judgment: Poor Interventions PRN's used: Benadryl Therapeutic interventions: Introduced self and established rapport, ensured contract for safety, provided clear and simple instructions, attempted to reorient to reality, provided medication education, provided direction and prompting to perform ADLs and needed, obtained order for Calamine Lotion for rash, and maintained Q 15 min safety checks. Restraints/seclusion/emergency medication: N/A Justification of Continued Inpatient Treatment: Requires interruption of current crisis, medication adjustments, and a safe and supportive environment.
[2019-06-02] MEDS: triamcinolone acetonide 0.5% cream 15gm TP SCH ×3 (08:00→20:21)
[2019-06-02 08:05] VITALS: BP 129/84
[2019-06-02] MEDS: divalproex sod 250mg ER (24-hour) tablet PO SCH (08:22)
[2019-06-02] MEDS: buPROPion 75mg tablet PO SCH (08:22)
[2019-06-02] MEDS: folic acid 0.4mg tablet PO SCH (08:23)
[2019-06-02] MEDS: thiamine 100mg tablet PO SCH (08:23)
[2019-06-02] MEDS: multivitamins, therapeutics tablet PO SCH (08:23)
--- NOTE | 2019-06-02 16:23 | NUR ---
Nursing Progress Note: Legal hold: 5150 Client on voluntary/involuntary status for GD Report received from nurse with use of SBAR Why are they here: Patient is a 58 year old male with schizophrenia and panic disorder who presented to the ED complaining of increasing auditory and visual hallucinations. Patient left his house in [place] to walk to [place] because voices were telling him to "start my everlasting destruction of myself." He was picked up in [place] near [place] after found laying on the side of the road. Pt. has not been taking his medications secondary to forgetting and has a history of multiple psychiatric hospitalizations. His toxicology screen was positive for amphetamines. Assessment What has happened this shift: Received Pt asleep w/o distress at beginning of shift. Pt. Awoke and ate breakfast in the community room with others and was pleasant and cooperative. He took medications w/o issue and assessment done with him although guarded and responding to qs with short answers. 1:1 done at bedside. Pt. gives minimal response to questions. He states that he doesnt think about SI until we start asking him about it. Reports AH but are less perecutory. And telling him to do harmful things. Pt. remains paranoid that someone is coming after her. Pt. attended groups but otherwise isolated to his room. Triamcinolone cream appplied to area of rash after c/o itching. S/I, H/I: Denies A/VH: Pt. reports hearing voices that tell him to torture and destroy himself. Sleep: Pt. napped frequently throughout the shift. ADL's: Requires direction and prompting from staff Group attendance: Yes Were meds taken: Yes Any med S/E: None, however presents as fatigued Mental Status Exam Appearance: Somewhat disheveled, however appropriately dressed Eye contact: Fair Behavior: Cooperative, withdrawn, and guarded Speech: Soft, minimal, responds only to questions Mood: Withdrawn, guarded Affect: Blunted Thought process: Poverty of thought Thought Content: protecting himself from the voices. Cognition: A&O X3 (Not to time) Insight: Poor Judgment: Poor Interventions PRN's used: None. Therapeutic interventions: Introduced self and established rapport, ensured contract for safety, provided clear and simple instructions, attempted to reorient to reality, provided medication education, provided direction and prompting to perform ADLs and needed, care for rash, and maintained Q 15 min safety checks. Restraints/seclusion/emergency medication: N/A Justification of Continued Inpatient Treatment: Requires interruption of current crisis, medication adjustments, and a safe and supportive environment.
[2019-06-02 19:00] VITALS: BP 118/78
[2019-06-02] MEDS: olanzapine 10mg tablet PO SCH (20:26)
[2019-06-02] MEDS: diphenhydrAMINE 25mg capsule PO PRN (20:26)
--- NOTE | 2019-06-02 22:23 | NUR ---
Nursing Progress Note: Legal hold: 5250 Client on voluntary/involuntary status for GD Report received from nurse with use of SBAR: STANLEY Montes Why are they here: Patient is a 58 year old male with schizophrenia and panic disorder who presented to the ED complaining of increasing auditory and visual hallucinations. Patient left his house in [place] to walk to [place] because voices were telling him to "start my everlasting destruction of myself." He was picked up in [place] near [place] after found laying on the side of the road. Pt. has not been taking his medications secondary to forgetting and has a history of multiple psychiatric hospitalizations. His toxicology screen was positive for amphetamines. Assessment What has happened this shift: Pt in his room laying in the dark, not sleeping, sits up immediately when staff walks in the room. Cooperative for 1:1 assessment. Patient reports that he is currently not hearing voices and reports "they are getting less and less". Patient also reports he is still having paranoid thoughts but states "I am able to reason my way through them". Kenalog cream applied to left side rash as ordered. Benadryl 25mg administered per patients request for itching with good effect. Compliant for all HS medications. Remains isolative remainder of the evening. S/I, H/I: Reported doesn't really think about it unless asked. Denies HI A/VH: Pt. reports AH are getting less and less. Sleep: Currently sleeping, see sleep assessment ADL's: Requires direction and prompting from staff Group attendance: No groups this shift Were meds taken: Yes Any med S/E: None noted or reported Mental Status Exam Appearance: Somewhat disheveled, appropriately dressed Eye contact: Fair Behavior: Cooperative, withdrawn Speech: Soft, minimal, responds only to questions Mood: Withdrawn, depressed Affect: Blunted Thought process: Linear Thought Content: Improvement since being in unit. Cognition: A&O X3 Insight: Poor Judgment: Poor Interventions PRN's used: Benadryl Therapeutic interventions: Introduced self and established rapport, ensured contract for safety, provided clear and simple instructions, attempted to reorient to reality, provided medication education, provided direction and prompting to perform ADLs and needed, obtained order for Calamine Lotion for rash, and maintained Q 15 min safety checks. Restraints/seclusion/emergency medication: N/A Justification of Continued Inpatient Treatment: Requires interruption of current crisis, medication adjustments, and a safe and supportive environment.
[2019-06-03 07:50] VITALS: BP 112/78
[2019-06-03] MEDS: multivitamins, therapeutics tablet PO SCH (08:05)
[2019-06-03] MEDS: folic acid 0.4mg tablet PO SCH (08:05)
[2019-06-03] MEDS: buPROPion 75mg tablet PO SCH (08:05)
[2019-06-03] MEDS: divalproex sod 250mg ER (24-hour) tablet PO SCH (08:05)
[2019-06-03] MEDS: thiamine 100mg tablet PO SCH (08:05)
[2019-06-03] MEDS: triamcinolone acetonide 0.5% cream 15gm TP SCH ×3 (09:57→21:34)
--- NOTE | 2019-06-03 17:55 | NUR ---
Nursing Progress Note: Zachariah Legal hold: 5250 Client on voluntary/involuntary status for GD Report received from nurse with use of SBAR: STANLEY Fischer Why are they here: Patient is a 58 year old male with schizophrenia and panic disorder who presented to the ED complaining of increasing auditory and visual hallucinations. Patient left his house in [place] to walk to [place] because voices were telling him to "start my everlasting destruction of myself." He was picked up in [place] near [place] after found laying on the side of the road. Pt. has not been taking his medications secondary to forgetting and has a history of multiple psychiatric hospitalizations. His toxicology screen was positive for amphetamines. Assessment What has happened this shift: Approached patient in the community room prior to breakfast. Initially responded with guarded answers then seemed more open and trusting. Stated he continues to hear voices but was unable to describe the content. Does admit that at times they are command hallucinations directing him to harm himself and/or others. Stated they were "quiet" this morning. Isolates in room, very polite and cooperative with staff. S/I, H/I: Reported doesn't really think about it unless asked. Denies HI A/VH: Pt. reports AH are getting less and less. Sleep: 9 ADL's: refused shower today Group attendance: No Were meds taken: Yes Any med S/E: None noted or reported Mental Status Exam Appearance: Somewhat disheveled, appropriately dressed Eye contact: Fair Behavior: Cooperative, withdrawn Speech: Soft, minimal, responds only to questions Mood: Withdrawn, guarded Affect: Blunted Thought process: Linear Thought Content: Improvement since being in unit. Cognition: A&O X3 Insight: Poor Judgment: Poor Interventions PRN's used: Therapeutic interventions: Introduced self and established rapport, ensured contract for safety, provided clear and simple instructions, attempted to reorient to reality, provided medication education, provided direction and prompting to perform ADLs and needed, obtained order for Calamine Lotion for rash, and maintained Q 15 min safety checks. Restraints/seclusion/emergency medication: N/A Justification of Continued Inpatient Treatment: Requires interruption of current crisis, medication adjustments, and a safe and supportive environment
[2019-06-03 19:50] VITALS: BP 125/82
[2019-06-03] MEDS: olanzapine 10mg tablet PO SCH (21:29)
[2019-06-03] MEDS: diphenhydrAMINE 25mg capsule PO PRN (21:29)
--- NOTE | 2019-06-04 02:17 | NUR ---
Nursing Progress Note: Zachariah Legal hold: 5250 Client on voluntary/involuntary status for GD Report received from nurse with use of SBAR: STANLEY Weber Why are they here: Patient is a 58 year old male with schizophrenia and panic disorder who presented to the ED complaining of increasing auditory and visual hallucinations. Patient left his house in [place] to walk to [place] because voices were telling him to "start my everlasting destruction of myself." He was picked up in [place] near [place] after found laying on the side of the road. Pt. has not been taking his medications secondary to forgetting and has a history of multiple psychiatric hospitalizations. His toxicology screen was positive for amphetamines. Assessment What has happened this shift: Ebony is isolative again this evening, remains in his room laying in bed awake and does not leave. he is pleasant, polite and is cooperative for a 1:1 assessment at his bedside. He still confirms paranoid thoughts and command AH this evening but still reports they are less and did not elaborate on what they are saying. He appeared to be RIS as he got distracted and was unable to finish speaking on his explanation of his voices appearing internally preoccupied. Was able to get patients attention again and he agreed to allow Kenalog cream to be applied to his rash in his left side. Patient requested Benadryl for itching again this evening which was administered with good effect.. Compliant with HS medications. S/I, H/I: Reported doesn't really think about it unless asked. Denies HI A/VH: Pt. reports Command AH and paranoid thoughts. Sleep: Currently sleeping, see sleep assessment ADL's: Independent Group attendance: No groups this shift. Were meds taken: Yes Any med S/E: None noted or reported Mental Status Exam Appearance: Somewhat disheveled, appropriately dressed Eye contact: Fair Behavior: Cooperative, withdrawn Speech: Soft, minimal, responds only to questions Mood: Withdrawn, guarded Affect: Blunted Thought process: Linear but distracted at times appeared to be internally preoccupied Thought Content: Focused on itching and getting back to bed, RIS Cognition: A&O X3 Insight: Poor Judgment: Poor Interventions PRN's used: Benadryl Therapeutic interventions: Introduced self and established rapport, ensured contract for safety, provided clear and simple instructions, attempted to reorient to reality, provided medication education, provided direction and prompting to perform ADLs and needed, obtained order for Calamine Lotion for rash, and maintained Q 15 min safety checks. Restraints/seclusion/emergency medication: N/A Justification of Continued Inpatient Treatment: Requires interruption of current crisis, medication adjustments, and a safe and supportive environment to prevent readmission.
[2019-06-04] MEDS: multivitamins, therapeutics tablet PO SCH (07:38)
[2019-06-04] MEDS: folic acid 0.4mg tablet PO SCH (07:38)
[2019-06-04] MEDS: divalproex sod 250mg ER (24-hour) tablet PO SCH (07:38)
[2019-06-04] MEDS: thiamine 100mg tablet PO SCH (07:39)
[2019-06-04] MEDS: buPROPion 75mg tablet PO SCH (07:39)
[2019-06-04] MEDS: triamcinolone acetonide 0.5% cream 15gm TP SCH ×3 (07:41→20:08)
[2019-06-04 08:08] VITALS: BP 116/76
--- NOTE | 2019-06-04 10:25 | NUR ---
Initial: Pt admit w/ psychosis PO 100% regular diet meeting needs. Hx etoh receiving thiamin, folic, MVI. Lateral abdominal wall cellulitis noted. Pt still meeting needs w/ current PO. LBM 06/03. Will continue to monitor. Rec: 1. continue regular diet 2. bowel care as needed 3. wt per rx Addendum: 06/04/19 at [address] Amended: Links added.
--- NOTE | 2019-06-04 15:40 | NUR ---
Nursing Progress Note: Zachariah Legal hold: 5250 Client on voluntary/involuntary status for GD Report received from nurse with use of SBAR: STANLEY Fischer Why are they here: Patient is a 58 year old male with schizophrenia and panic disorder who presented to the ED complaining of increasing auditory and visual hallucinations. Patient left his house in [place] to walk to [place] because voices were telling him to "start my everlasting destruction of myself." He was picked up in [place] near [place] after found laying on the side of the road. Pt. has not been taking his medications secondary to forgetting and has a history of multiple psychiatric hospitalizations. His toxicology screen was positive for amphetamines. Assessment What has happened this shift: Patient observed sitting in [address] staring at the phone, asked to return to his room for meds and application of lotion for cellulitis. Calm, cooperative, states he continues to hear voices but they are more positive than negative. He is focused on getting better and returning home. When asked if he lives alone, he states "yes except for the imaginary people" and then smiles slightly. Was able to contact a friend and explained his current situation, he was apologetic to the person on the other end of the phone, but seemed to want to get back to what they had previously been working on. S/I, H/I: Reported doesn't really think about it unless asked. Denies HI A/VH: Pt. reports Command AH and paranoid thoughts. Sleep: 10 ADL's: Independent Group attendance: No Were meds taken: Yes Any med S/E: None noted or reported Mental Status Exam Appearance: Somewhat disheveled, appropriately dressed Eye contact: Fair Behavior: Cooperative, withdrawn Speech: Soft, minimal, responds only to questions Mood: Withdrawn, guarded Affect: Blunted Thought process: Linear but distracted at times appeared to be internally preoccupied Thought Content: Focused on itching and getting back to bed, RIS Cognition: A&O X3 Insight: Poor Judgment: Poor Interventions PRN's used: Therapeutic interventions: Introduced self and established rapport, ensured contract for safety, provided clear and simple instructions, attempted to reorient to reality, provided medication education, provided direction and prompting to perform ADLs and needed, obtained order for Calamine Lotion for rash, and maintained Q 15 min safety checks. Restraints/seclusion/emergency medication: N/A Justification of Continued Inpatient Treatment: Requires interruption of current crisis, medication adjustments, and a safe and supportive environment to prevent readmission.
[2019-06-04 19:38] VITALS: BP 128/82
[2019-06-04] MEDS: olanzapine 10mg tablet PO SCH (20:08)
--- NOTE | 2019-06-04 21:37 | NUR ---
Nursing Progress Note: Zachariah Legal hold: 5250 Client on voluntary/involuntary status for GD Report received from nurse with use of SBAR: STANLEY Weber Why are they here: Patient is a 58 year old male with schizophrenia and panic disorder who presented to the ED complaining of increasing auditory and visual hallucinations. Patient left his house in [place] to walk to [place] because voices were telling him to "start my everlasting destruction of myself." He was picked up in [place] near [place] after found laying on the side of the road. Pt. has not been taking his medications secondary to forgetting and has a history of multiple psychiatric hospitalizations. His toxicology screen was positive for amphetamines. Assessment What has happened this shift: Patient was asleep at shift change and got up for snacks. Pt was calm, cooperative, states he continues to hear voices but they are more positive than negative. He is focused on getting better and returning home. When asked if he lives alone, he states "yes except for the imaginary people" and then smiles slightly. Pt was med compliant and applied his cream. S/I, H/I: Reported doesn't really think about it unless asked. Denies HI A/VH: Pt. reports Command AH and paranoid thoughts. Sleep: 10 ADL's: Independent Group attendance: No Were meds taken: Yes Any med S/E: None noted or reported Mental Status Exam Appearance: Somewhat disheveled, appropriately dressed Eye contact: Fair Behavior: Cooperative, withdrawn Speech: Soft, minimal, responds only to questions Mood: Withdrawn, guarded Affect: Blunted Thought process: Linear but distracted at times appeared to be internally preoccupied Thought Content: Focused on itching and getting back to bed, RIS Cognition: A&O X3 Insight: Poor Judgment: Poor Interventions PRN's used: Therapeutic interventions: Introduced self and established rapport, ensured contract for safety, provided clear and simple instructions, attempted to reorient to reality, provided medication education, provided direction and prompting to perform ADLs and needed, obtained order for Calamine Lotion for rash, and maintained Q 15 min safety checks. Restraints/seclusion/emergency medication: N/A Justification of Continued Inpatient Treatment: Requires interruption of current crisis, medication adjustments, and a safe and supportive environment to prevent readmission.
[2019-06-05] MEDS: thiamine 100mg tablet PO SCH (07:43)
[2019-06-05] MEDS: triamcinolone acetonide 0.5% cream 15gm TP SCH ×3 (07:43→20:10)
[2019-06-05] MEDS: divalproex sod 250mg ER (24-hour) tablet PO SCH (07:43)
[2019-06-05] MEDS: buPROPion 75mg tablet PO SCH (07:43)
[2019-06-05] MEDS: folic acid 0.4mg tablet PO SCH (07:43)
[2019-06-05] MEDS: multivitamins, therapeutics tablet PO SCH (07:43)
[2019-06-05 07:50] VITALS: BP 131/74
--- NOTE | 2019-06-05 15:11 | NUR ---
Nursing Progress Note: Zachariah Legal hold: 5250 Client on voluntary/involuntary status for GD Report received from nurse with use of SBAR: STANLEY Yeboah Why are they here: Patient is a 58 year old male with schizophrenia and panic disorder who presented to the ED complaining of increasing auditory and visual hallucinations. Patient left his house in [place] to walk to [place] because voices were telling him to "start my everlasting destruction of myself." He was picked up in [place] near [place] after found laying on the side of the road. Pt. has not been taking his medications secondary to forgetting and has a history of multiple psychiatric hospitalizations. His toxicology screen was positive for amphetamines. Assessment What has happened this shift: Patient was sleeping at time of shift change. Out of room only for meals. He did have two visitors from his mosque who will be a support network for him on discharge. Patient was concerned that he had lost his wallet, keys, and all identification. Friends, notified him that they had located all the items and that they were safe. Patient states his depression 2-4/10 and anxiety ranging from 4-6/10 and denies SI. States he always hears voices but they do not consume him unless he stops medications or gets involved using Meth and/or alcohol. Is working on setting goals to maintain abstinence from these substances. Rash is showing signs of improvement and patient reports less itching. DC plan for tomorrow or Wednesday. Met with patient advocate for 5250 hearing per regulations S/I, H/I: Denies A/VH: Pt. reports at baseline Sleep: 10.75 ADL's: Independent Group attendance: No Were meds taken: Yes Any med S/E: None noted or reported Mental Status Exam Appearance: Showered, clean, appropriately dressed Eye contact: Fair Behavior: Cooperative, isolating Speech: Soft, more descriptive with answers to questions Mood: hopeful, goal directed Affect: Congruent with mood Thought process: Linear Thought Content: goal directed, rehab and medication compliance Cognition: A&O X3 Insight: Fair Judgment: Fair Interventions PRN's used: Therapeutic interventions: Introduced self and established rapport, ensured contract for safety, provided clear and simple instructions, attempted to reorient to reality, provided medication education, provided direction and prompting to perform ADLs and needed, obtained order for Calamine Lotion for rash, and maintained Q 15 min safety checks. Restraints/seclusion/emergency medication: N/A Justification of Continued Inpatient Treatment: Requires interruption of current crisis, medication adjustments, and a safe and supportive environment to prevent readmission.
[2019-06-05 19:44] VITALS: BP 117/73
[2019-06-05] MEDS: olanzapine 10mg tablet PO SCH (20:10)
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
[2019-06-06 07:00] VITALS: BP 115/72
[2019-06-06] MEDS ORDERED: OLAN10TA19 PO (07:37)
[2019-06-06] MEDS ORDERED: BUPR75TA12 PO (07:37)
[2019-06-06] MEDS ORDERED: DIVA500T9 PO (07:37)
[2019-06-06] MEDS: divalproex sod 250mg ER (24-hour) tablet PO SCH (08:00)
[2019-06-06] MEDS: buPROPion 75mg tablet PO SCH (08:00)
[2019-06-06] MEDS: folic acid 0.4mg tablet PO SCH (08:00)
[2019-06-06] MEDS: multivitamins, therapeutics tablet PO SCH (08:00)
[2019-06-06] MEDS: triamcinolone acetonide 0.5% cream 15gm TP SCH (08:02)
[2019-06-06] MEDS: thiamine 100mg tablet PO SCH (08:18)
--- NOTE | 2019-06-06 11:01 | NUR ---
Discharge Note: Pt was accompanied by misti Ramos off the unit at 1012. He was transported home ([address] [facility] [place]) via [employer] which he requested to pay for himself. He had all of his belongings on his person and was dressed in street clothes. He has follow up appointment scheduled on 06/15/[address] Kenney at [facility]. He is in an upbeat and anxious mood to leave, denies any SI. He has improved immensely since admission and reports he now plans on being medication compliant because he is aware "how bad I get" when off of his medications. He was offered a nicotine replacement but pt does not smoke or plan to.
== END 2019-06-06 10:12 | disposition home or self-care (01) | DRG 885 ==
LOC: ADULT MH 12:42
PROVIDERS: ADMIT Psychiatry & Neurology Psychiatry; ATTEND Psychiatry & Neurology Psychiatry
DX: F20.0 Paranoid schizophrenia (principal); R45.851 Suicidal ideations; E11.9 Type 2 diabetes mellitus without complications; E78.5 Hyperlipidemia, unspecified; F17.210 Nicotine dependence, cigarettes, uncomplicated; F15.10 Other stimulant abuse, uncomplicated; F41.9 Anxiety disorder, unspecified; Z60.2 Problems related to living alone; I10 Essential (primary) hypertension; B19.20 Unspecified viral hepatitis C without hepatic coma; J44.9 Chronic obstructive pulmonary disease, unspecified; K29.70 Gastritis, unspecified, without bleeding; Z79.899 Other long term (current) drug therapy; Z87.442 Personal history of urinary calculi; Z88.0 Allergy status to penicillin; Z91.14 Patient's other noncompliance with medication regimen; Z23 Encounter for immunization; Z90.49 Acquired absence of other specified parts of digestive tract; Z71.6 Tobacco abuse counseling
CPT/HCPCS: 36415; 80053; 80061; 80164; 80305; 80320; 81001; 83036; 84443; 85025; 87081; Q0163; Q2037

== ENCOUNTER 2019-07-10 11:54 | Emergency (ER) | payer MEDICARE, MEDICAID ==
[~2019-07-10] VITALS: Ht 180.3 cm; Wt 86.4 kg
[~2019-07-10 11:54] MED LIST changes: +BUPR75TA12 PO; -FOLI0.4T2 PO; +OLAN10TA19 PO; -OLAN10TA3 PO; -THIA100T73 PO
[2019-07-10 13:05] LABS: BASOPHILS % (AUTO) 0.3 % (0-1); EOSINOPHILS % (AUTO) 0.4 % (0-6); HEMATOCRIT 44.3 % (42.0-52.0); HEMOGLOBIN 15.2 g/dl (14.0-17.9); LYMPHOCYTES % (AUTO) 14.8 % (21-51); MEAN CORPUSCULAR HGB CONC 34.3 g/dL (33.0-36.5); MEAN CORPUSCULAR VOLUME 93.1 FL (78-98); MONOCYTES # (AUTO) 0.5 X10'3 (0-0.9); MONOCYTES % (AUTO) 7.3 % (2-12); NEUTROPHILS # (AUTO) 5.2 X10'3 (1.8-7.7); NEUTROPHILS % (AUTO) 77.2 % (42-75); PLATELET COUNT 231 X10'3 (140-440); RED BLOOD COUNT 4.76 X10'6 (4.70-6.10); RED CELL DISTRIBUTION WIDTH 14.8 % (11.5-14.5); WHITE BLOOD COUNT 6.8 X10'3 (4.5-11.0)
[2019-07-10 13:15] LABS: ALANINE AMINOTRANSFERASE 26 U/L (12-78); ALBUMIN 3.9 G/DL (3.4-5.0); ALBUMIN/GLOBULIN RATIO 1.2 (1.1-1.5); ALKALINE PHOSPHATASE 80 IU/L (46-116); ANION GAP 13 (8-16); ASPARTATE AMINO TRANSFERASE 23 U/L (10-37); BILIRUBIN,TOTAL 0.8 MG/DL (0.1-1.0); BLOOD UREA NITROGEN 12 MG/DL (7-18); BUN/CREATININE RATIO 11.4 (5.4-32.0); CALCIUM 9.2 MG/DL (8.5-10.1); CHLORIDE 104 MMOL/L (99-107); CREATININE 1.05 MG/DL (0.60-1.10); ETHANOL < 0.010 GM/DL (0.0-0.010); GLUCOSE 97 MG/DL (70-104); POTASSIUM 3.3 MMOL/L (3.5-5.1); SODIUM 143 MMOL/L (135-145); TOTAL CARBON DIOXIDE 25.6 MMOL/L (24-32); TOTAL PROTEIN 7.1 G/DL (6.4-8.2); eGFR 72 ML/MIN
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
--- NOTE | 2019-07-10 15:12 | NUR ---
Patient seems to be having hellucinations, and speaking to himself.
[2019-07-10] MEDS ORDERED: diphenhydrAMINE 50 mg/ml inj IM ONE (17:05)
[2019-07-10] MEDS ORDERED: LORazepam 2 mg/ml vial IM ONE (17:05)
[2019-07-10] MEDS ORDERED: haloperidol lactate 5mg/ml inj IM ONE (17:05)
--- NOTE | 2019-07-10 17:24 | NUR ---
Patient started to increase in auditory and visual hellucination. Patient situation was presented to the physician and medications were ordered and given at this time.
--- NOTE | 2019-07-10 19:59 | NUR ---
This patient has been sleeping quietly in bed since shift change. He had recieved a B-52 sedation due to hallucinations and outbursts prior to shift change.
--- NOTE | 2019-07-10 23:26 | NUR ---
Patient remains sleeping. A tech is nearby. Patient is visable from the nursing station.
--- NOTE | 2019-07-11 06:40 | NUR ---
REPORT RECEIVED, CARE ASSUMED. PT SLEEPING, NO S/S OF DISTRESS NOTED
--- NOTE | 2019-07-11 07:50 | NUR ---
PT AWAKE AND UP TO THE BATHROOM PRIOR TO RN BEING ABLE TO OBTAIN A URINE SAMPLE. WILL ATTEMPT TO GET SAMPLE AFTER BREAKFAST.
--- NOTE | 2019-07-11 08:30 | NUR ---
PT ATE ALL OF BREAKFAST AND REQUESTED ADDITIONAL "PROTIEN". PT GIVEN A TURKEY SANDWICH. REQUESTED PT TO PROVIDE A URINE SAMPLE, PT STATES THAT HE IS UNABLE TO URINATE AT THIS TIME. INFORMED BY LILA PT HAS ISSUES WITH URINATING INTO A CUP, A URINAL WAS PROVIDED AND ADVISED PT TO USE THE URINAL NEXT TIME HE NEEDS TO URINATE.
--- NOTE | 2019-07-11 09:54 | NUR ---
BREAKING PRIMARY RN, PT IS SUPINE IN BED, REGULAR BREATHING PRESENT NO AGITATION OBSERVED
--- NOTE | 2019-07-11 10:56 | NUR ---
PT SLEEPING, NO S/S OF DISTRESS NOTED
--- NOTE | 2019-07-11 13:50 | NUR ---
Lunch relief for Primary nurse. Pt has sitter nearby. Pt is eating lunch at this time. Pt has no distress noted.
[2019-07-11 18:26] LABS: CLARITY,URINE CLEAR (Clear); COLOR,URINE YELLOW (Yellow); GLUCOSE, URINE NEGATIVE (Neg); KETONES,URINE TRACE mg/dl (Neg); LEUKOCYTE ESTERASE ,URINE NEGATIVE (Neg); NITRITES, URINE NEGATIVE (Neg); OCCULT BLOOD,URINE NEGATIVE (Neg); PROTEIN,URINE NEGATIVE (Neg)
[2019-07-11 18:27] LABS: UA COLLECTION TYPE CLN CATCH MIDSTREAM
[2019-07-11 18:37] LABS: URINE AMPHETAMINE SCREEN POSITIVE (Neg); URINE BARBITUATE SCREEN NEGATIVE (Neg); URINE BENZODIAZEPINES SCREEN NEGATIVE (Neg); URINE CANNABINOID SCREEN NEGATIVE (Neg); URINE COCAINE SCREEN NEGATIVE (Neg); URINE METHADONE SCREEN NEGATIVE (Neg); URINE OPIATE SCREEN NEGATIVE (Neg); URINE PHENCYCLIDINE SCREEN NEGATIVE (Neg)
--- NOTE | 2019-07-11 19:47 | NUR ---
The patient is resting on his bed. His appearance is bizzare and has shaved patches on his head. He rambles in a disorganized tangential way. He is making delusional statements. 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
--- NOTE | 2019-07-11 22:03 | NUR ---
The patient appears to be sleeping
--- NOTE | 2019-07-12 01:45 | NUR ---
The patient appears to be sleeping
--- NOTE | 2019-07-12 02:31 | NUR ---
The patient is awake and walking to the bathroom calls out over towards the nursing station and asked, "are we ready to go yet?" He then asked for food and fluids and that was provided.
[2019-07-12] MEDS ORDERED: DIVA500T4 PO (02:39)
[2019-07-12] MEDS ORDERED: BUPR150T8 PO (02:39)
[2019-07-12] MEDS ORDERED: OLAN10TA19 PO (02:39)
--- NOTE | 2019-07-12 03:58 | NUR ---
The patient appears to be sleeping
--- NOTE | 2019-07-12 06:50 | NUR ---
THIS NURSE ARRIVED FROM SURGICAL TO ER OVERFLOW. ASSUMED CARE OF PT. PT. RESTING WITH EYES CLOSED AND RISE AND FALL OF CHEST. NO DISTRESS NOTED.
[2019-07-12] MEDS ORDERED: buPROPion 75mg tablet PO SCH (08:00)
--- NOTE | 2019-07-12 09:00 | NUR ---
ASSESSMENT MADE OF PT. , ROOM SAFE WITH NO HARMFUL ITEMS NEARBY, PT AWAKE, ATE MOST OF BREAKFAST. COOPERATIVE BUT INAPPROPRIATE CONVERSATION. STATES "I HAVE 3 WIVES. ONE IS LINDA ROLAND. LINDA ROLAND LIVES WHERE SHE NEEDS TO. I DON'T NEED ANY SATANIC CONFUSION." PT. DENIES ANY INTENT TO HARM HIMSELF. STATES THAT HE KNOWS HE BURNT HIS HAIR.
--- NOTE | 2019-07-12 09:35 | NUR ---
Breaking primary RN, pt ambulated to the bathroom, no anxiety abserved
--- NOTE | 2019-07-12 11:00 | NUR ---
PT. IN ROOM WITH [facility]. NO DISTRESS NOTED AT THIS TIME.
--- NOTE | 2019-07-12 11:56 | NUR ---
PT. RESTING, BLANKETS PULLED UP OVER HIS HEAD, RISE AND FALL OF CHEST.
--- NOTE | 2019-07-12 12:46 | NUR ---
PT LAYING ON HIS RIGHT SIDE, RESPIRATIONS EVEN AND UNLABORED. N DISTRESS NOTED AT THIS TIME.
--- NOTE | 2019-07-12 13:54 | NUR ---
PT. RESTING WITH EYES CLOSED, RISE AND FALL OF CHEST.
--- NOTE | 2019-07-12 14:31 | NUR ---
PT. LYING ON HIS R SIDE WITH EYES CLOSED, TALKING TO HIMSELF, TAPPING HIS FEET.
--- NOTE | 2019-07-12 15:31 | NUR ---
BREAKING PRIMARY RN, PT IS SUPINE IN BED, REGULAR BREATHING PRESENT, NO NEEDS AT THIS TIME
--- NOTE | 2019-07-12 15:58 | NUR ---
PT. RESTING EYES CLOSED. APPEARS TO BE SLEEPING. NO DISTRESS NOTED.
--- NOTE | 2019-07-12 17:46 | NUR ---
PT. AWAKE ALERT. LYING IN BED, REQUESTING SNACK, SNACK PROVIDED.
--- NOTE | 2019-07-12 18:15 | NUR ---
GAVE REPORT TO PALLAVI ANGEL
--- NOTE | 2019-07-12 18:30 | NUR ---
Received report from STANLEY Corea
--- NOTE | 2019-07-12 19:00 | NUR ---
Patient is currently sleeping with only one observed steady gait amublation to the bathroom, independently.
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
[2019-07-12] MEDS ORDERED: olanzapine 10mg tablet PO SCH (21:00)
[2019-07-12] MEDS ORDERED: divalproex sodium 500mg tablet.DR PO SCH (21:00)
[2019-07-12 23:20] VITALS: BP 116/71
== END 2019-07-12 23:26 ==
LOC: ER 11:54
DX: F20.9 Schizophrenia, unspecified (principal); F29 Unspecified psychosis not due to a substance or known physiological condition; F41.0 Panic disorder [episodic paroxysmal anxiety]; J44.9 Chronic obstructive pulmonary disease, unspecified; F12.90 Cannabis use, unspecified, uncomplicated; F15.90 Other stimulant use, unspecified, uncomplicated; Z88.0 Allergy status to penicillin; Z79.899 Other long term (current) drug therapy; Z60.2 Problems related to living alone
CPT/HCPCS: 36415; 80053; 80305; 80320; 81003; 85025; 96372; 99285; J1200; J1630; J2060

== ENCOUNTER 2019-07-12 14:24 | Inpatient (IN) | payer MEDICARE, MEDICAID ==
[~2019-07-12] VITALS: Ht 180.3 cm; Wt 99.0 kg
[~2019-07-12 14:24] MED LIST changes: +BUPR150T8 PO; +DIVA500T4 PO; -MULT-1074 PO
[2019-07-12] MEDS ORDERED: potassium chloride 10mEq ER tablet PO ONE (21:50)
[2019-07-12 21:55] VITALS: BP 119/75
[2019-07-12] MEDS ORDERED: acetaminophen 325mg tablet PO PRN ×2 (21:55)
[2019-07-12] MEDS ORDERED: mag hydrox/Alum hydrox/simeth 30ml oral suspension PO PRN (21:55)
[2019-07-12] MEDS ORDERED: magnesium hydroxide 30ml (MOM) UD suspension PO PRN (21:55)
[2019-07-12] MEDS ORDERED: loperamide 2mg capsule PO PRN (21:55)
[2019-07-12] MEDS ORDERED: hydrOXYzine 25 MG tablet PO PRN (21:55)
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
[2019-07-12] MEDS: LORazepam 1 MG tablet PO PRN (23:13)
[2019-07-13 06:34] LABS: CHOL/HDL RATIO 3.8 (0.00-4.99); CHOLESTEROL 132 MG/DL (0-200); HDL CHOLESTEROL 35 MG/DL (35-60); LDL CHOLESTEROL 71 MG/DL (50-100); POTASSIUM 3.7 MMOL/L (3.5-5.1); TRIGLYCERIDES 272 MG/DL (20-135)
[2019-07-13] MEDS: buPROPion 75mg tablet PO SCH (07:53)
[2019-07-13 08:00] VITALS: BP 116/73
[2019-07-13] MEDS ORDERED: FLU VACC QS2019-20 36MOS UP/PF 60 MCG/0.5 ML SYRINGE IMVAC ONE (10:00)
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
[2019-07-13] MEDS: LORazepam 1 MG tablet PO PRN (14:02)
[2019-07-13 19:47] VITALS: BP 127/71
[2019-07-13] MEDS ORDERED: olanzapine 10mg tablet PO SCH (21:00)
[2019-07-13] MEDS: divalproex sodium 500mg tablet.DR PO SCH (21:01)
[2019-07-13] MEDS: OLANZAPINE 5 MG TABLET PO SCH (21:02)
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
[2019-07-14] MEDS: buPROPion 75mg tablet PO SCH (07:45)
[2019-07-14] MEDS ORDERED: nicotine 21mg patch - 24 hr TD SCH (08:00)
[2019-07-14 08:10] VITALS: BP 115/79
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
[2019-07-14 19:42] VITALS: BP 125/65
[2019-07-14] MEDS: divalproex sodium 500mg tablet.DR PO SCH (21:21)
[2019-07-14] MEDS: OLANZAPINE 5 MG TABLET PO SCH (21:21)
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
[2019-07-15] MEDS: buPROPion 75mg tablet PO SCH (07:57)
[2019-07-15 08:03] VITALS: BP 118/72
[2019-07-15] MEDS ORDERED: DIVA500T4 PO (14:03)
[2019-07-15] MEDS ORDERED: OLAN5TAB26 PO (14:03)
[2019-07-15] MEDS ORDERED: BUPR150T8 PO (14:03)
--- NOTE | 2019-07-15 15:10 | NUR ---
DISCHARGE NOTE The patient was discharged today at 1510. He left with all instructions, belongings and prescriptions. He was anxious to get home and to clam picker his car. A cab was called for transport to home. He was escorted to the lobby by DIMAS Mcdowell.
== END 2019-07-15 16:00 | disposition home or self-care (01) | DRG 885 ==
LOC: ADULT MH 14:24
PROVIDERS: ADMIT Psychiatry & Neurology Psychiatry; ATTEND Psychiatry & Neurology Psychiatry
DX: F25.9 Schizoaffective disorder, unspecified (principal); F32.9 Major depressive disorder, single episode, unspecified; J44.9 Chronic obstructive pulmonary disease, unspecified; F17.210 Nicotine dependence, cigarettes, uncomplicated; F41.0 Panic disorder [episodic paroxysmal anxiety]; F15.10 Other stimulant abuse, uncomplicated; Z88.0 Allergy status to penicillin; Z71.6 Tobacco abuse counseling; Z81.8 Family history of other mental and behavioral disorders
CPT/HCPCS: 36415; 80053; 80061; 80305; 80320; 81003; 84132; 85025; 87081; 99285; Q2037